=== PATIENT | female | born 1945 | race Two or more races ===

== ENCOUNTER 2024-10-31 10:37 | Emergency (ER) | payer MEDICAID, MEDICARE ==
[~2024-10-31] VITALS: Ht 172.7 cm; Wt 121.1 kg
--- NOTE | 2024-10-31 10:59 | ED.PDOC ---
History of Present Illness HPI Comments 79-year-old female presents with a chief complaint of cellulitis x 3 weeks to her bilateral lower extremities. Patient states that her legs are swollen and red for the past 3 weeks. Patient was given Lasix by Dr. Lugo, but states that she broke out from it. Patient is not currently on any antibiotics. Time Seen by MD: 10:47 Reviewed Notes: Medications, Allergies Allergies: Coded Allergies: Acetaminophen (Verified Allergy, Unknown, 10/31/24) Hydrocodone (Verified Allergy, Unknown, 10/31/24) Home Meds Active Scripts Clindamycin Hcl (Clindamycin Hcl) 300 Mg Cap, 1 CAP PO TID, #21 CAP Prov:JULIA TREJO MD 10/31/24 Amoxicillin Trihydrate (Amoxicillin) 500 Mg Tab, 1 TAB PO TID for 7 Days, #21 TAB Prov:JULIA TREJO MD 10/31/24 Information Source: Patient Mode of Arrival: Wheelchair Severity: Moderate Timing: Weeks Duration: Since onset Prehospital treatment: None Constitutional: denies: chills, diaphoresis, fatigue, fever, malaise, sweats, weakness, others EENTM: denies: blurred vision, double vision, ear bleeding, ear discharge, ear drainage, ear pain, ear ringing, eye pain, eye redness, hearing loss, mouth pain, mouth swelling, nasal discharge, nose bleeding, nose congestion, nose pain, photophobia, tearing, throat pain, throat swelling, voice changes, others Respiratory: denies: cough, hemoptysis, orthopnea, SOB at rest, shortness of breath, SOB with excertion, stridor, wheezing, others Cardiovascular: reports: edema; denies: chest pain, dizzy spells, diaphoresis, Dyspnea on exertion, irregular heart beat, left arm pain, lightheadedness, palpitations, PND, syncope, others Gastrointestinal: denies: abdomen distended, abdominal pain, blood streaked bowels, constipated, diarrhea, dysphagia, difficulty swallowing, hematemesis, melena, nausea, poor appetite, poor fluid intake, rectal bleeding, rectal pain, vomiting, others Genitourinary: denies: abnormal vagina bleeding, burning, dyspareunia, dysuria, flank pain, frequency, hematuria, incontinence, pain, , vagina discharge, urgency, others Neurological: denies: dizziness, fainting, headache, left sided numbness, left sided weakness, numbness, paresthesia, pre-existing deficit, right sided numbness, right sided weakness, seizure, speech problems, tingling, tremors, weakness, others Musculoskeletal: denies: back pain, gout, joint pain, joint swelling, muscle pain, muscle stiffness, neck pain, others Integumetry: denies: bruises, change in color, change in hair/nails, dryness, laceration, lesions, lumps, rash, wounds, others Allergic/Immunocompromised: denies: Difficulty Healing, Frequent Infections, Hives, Itching, others Hematologic/Lymphatic: denies: anemia, blood clots, easy bleeding, easy bruising, swollen glands, others Endocrine: denies: excessive hunger, excessive sweating, excessive thirst, excessive urination, flushing, intolerance to cold, intolerance to heat, unexplained weight gain, unexplained weight loss, others Psychiatric: denies: anxiety, bipolar disorder, depression, hopeless, panic disorder, schizophrenia, sleepless, suicidal, others All Other Systems: Reviewed and Negative Physical Exam General Appearance: Moderate Distress, Normal HEENT: Normal ENT Inspection, Pharynx Normal, TMs Normal Neck: Full Range of Motion, Non-Tender, Normal, Normal Inspection Respiratory: Chest Non-Tender, Lungs Clear, No Accessory Muscle Use, No Respiratory Distress, Normal Breath Sounds Cardiovascular: No Edema, No JVD, No Murmur, No Gallop, Normal Peripheral Pulses, Regular Rate/Rhythm Breast Exam: Deferred Gastrointestinal: No Organomegaly, Non Tender, No Pulsatile Mass, Normal Bowel Sounds, Soft Genitalia: Deferred Pelvic: Deferred Rectal: Deferred Extremities: No calf tenderness, Normal capillary refill, Normal inspection, Normal range of motion, Non-tender, No pedal edema Musculoskeletal : Apperance: Normal Neurologic: Alert, extracorporeal circulation specialist II-XII nml as Tested, No Motor Deficits, Normal Affect, Normal Mood, No Sensory Deficits Cerebellar Function: NOT DONE Reflexes: NOT DONE Skin: Dry, Normal Color, Warm, Other (Redness of bilateral lower extremity) Peripheral Pulses: 3+ Radial (R), 3+ Radial (L) Lymphatic: No Adenopathy Was a procedure done? Was a procedure done?: No Differential Dx Considerations may include: CHF Electrolyte imbalance X-Ray, Labs, Meds, VS Vital Signs Date Time Temp Pulse Resp B/P (MAP) Pulse Ox O2 Delivery O2 Flow Rate FiO2 10/31/24 15:35 107 10/31/24 15:22 98.1 72 16 146/77 (100) 98 98.1 10/31/24 14:54 71 19 96 Room Air* 0 21 10/31/24 13:46 97.4 77 14 141/87 (105) 94 97.4 10/31/24 12:04 97.7 88 16 127/77 (94) 94 97.7 10/31/24 10:51 98.1 83 17 135/90 (105) 93 98.1 Lab Test 10/31/24 15:49 10/31/24 11:14 Range/Units Sodium Level 137 136-145 mmol/L Potassium Level 3.7 3.5-5.1 mmol/L Chloride Level 99 98-107 mmol/L Carbon Dioxide Level 29 20-31 mmol/L Anion Gap 9 5-15 Blood Urea Nitrogen 13 9-23 mg/dL Creatinine 0.79 0.550-1.02 mg/dL Glomerular Filtration Rate Calc 77 >90 mL/min BUN/Creatinine Ratio 16.5 10.0-20.0 Serum Glucose 123 H 74-106 mg/dL Calcium Level 10.1 8.7-10.4 mg/dL Troponin I High Sensitivity 7 </=34 ng/L B-Type Natriuretic Peptide 23.99 0-100 pg/mL Current Medications Medications (Trade) Dose Ordered Sig/Gabriele Route Start Time Stop Time Status Last Admin Ceftriaxone Sodium 50 ml @ 100 mls/hr ONCE ONCE IV 10/31/24 13:15 10/31/24 13:44 DC 10/31/24 14:53 Clindamycin Phosphate 50 ml @ 50 mls/hr ONCE ONCE IV 10/31/24 13:15 10/31/24 14:14 DC 10/31/24 14:53 Patient alert. Obese. Vitals stable. Answering questions. Bilateral lower extremity redness. Possibly chronic. Cellulitis. BNP within normal limits. She is on water pill. Being followed by cardiology. Was given Rocephin. Was given clindamycin. No shortness a breath. No chest pain. Heart rate within normal limits. Saturation pristine on room air. Explained to the patient. Continue to monitor. States that she is feeling much better. Was given prescription of amoxicillin clindamycin antibiotic. Time of 1ST Reevaluation: 11:17 Reevaluation 1ST: Unchanged Patient Education/Counseling: Diagnosis, Treatment, Prognosis Family Education/Counseling: No Family Present SEPSIS Sepsis Screen Physician Orders Chest Portable (10/31/24 10:56) Electrocardigram (10/31/24 16:56) Vital Signs Date Time Temp Pulse Resp B/P (MAP) Pulse Ox O2 Delivery O2 Flow Rate FiO2 10/31/24 15:35 107 10/31/24 15:22 98.1 72 16 146/77 (100) 98 98.1 10/31/24 14:54 71 19 96 Room Air* 0 21 10/31/24 13:46 97.4 77 14 141/87 (105) 94 97.4 10/31/24 12:04 97.7 88 16 127/77 (94) 94 97.7 10/31/24 10:51 98.1 83 17 135/90 (105) 93 98.1 Medications Medications Dose Ordered Sig/Gabriele Route Start Time Stop Time Status Last Admin Dose Admin Ceftriaxone Sodium 50 ml @ 100 mls/hr ONCE ONCE IV 10/31/24 13:15 10/31/24 13:44 DC 10/31/24 14:53 Clindamycin Phosphate 50 ml @ 50 mls/hr ONCE ONCE IV 10/31/24 13:15 10/31/24 14:14 DC 10/31/24 14:53 Departure 1 Departure Time of Disposition: 13:13 Impression: Primary Impression: Cellulitis Qualified Codes: L03.116 - Cellulitis of left lower limb Disposition: 01 HOME / SELF CARE / HOMELESS Condition: Good e-Prescriptions Clindamycin Hcl (Clindamycin Hcl) 300 Mg Cap 1 CAP PO TID, #21 CAP Prov: JULIA TREJO MD 10/31/24 Amoxicillin Trihydrate (Amoxicillin) 500 Mg Tab 1 TAB PO TID for 7 Days, #21 TAB Prov: JULIA TREJO MD 10/31/24 Discharged With: Self Critical Care Note Critical Care Time?: No Stability Stability form required: No Heart Score Heart Score: Heart Score Response (Comments) Value History N/A 0 EKG N/A 0 Age N/A 0 Risk Factors N/A 0 Troponin N/A 0 Total 0 I personally scribed for JULIA TREJO MD ([email or web address]) on 10/31/24 at 10:59. Electronically submitted by Da Watts ([email or web address]). JULIA TREJO MD Oct 31, 2024 10:59
--- NOTE | 2024-10-31 12:02 | DVH ---
XY CHEST PORTABLE, HISTORY: sob COMPARISON: None None TECHNICAL DATA: 1 view of the chest was obtained. FINDINGS: Lines and tubes: None Cardiomediastinal silhouette: normal Pulmonary vasculature: normal Lung expansion: normal Lung airspace: normal Lung interstitium: normal Pleura: normal Pneumothorax: no Bones: Unremarkable Other: no IMPRESSION: No acute intrathoracic abnormality.
[2024-10-31] MEDS ORDERED: CLIN1CAP70 PO (13:54)
[2024-10-31] MEDS ORDERED: AMOX500T3 PO (13:54)
[2024-10-31] MEDS: CLINDAMYCIN 600MG IV 50 ML IV ONE (14:53)
[2024-10-31] MEDS: cefTRIAXone 1GM/50ML D5W 50 ML IV ONE (14:53)
[2024-10-31 14:54] VITALS: PULSE 71; RESP 19; O2SAT 96
[2024-10-31 15:22] VITALS: BP 146/77; RESP 16; TEMP 98.1; O2SAT 98
[2024-10-31 15:35] VITALS: PULSE 107
[2024-10-31 16:03] LABS: Chloride 99 mmol/L (98-107); Potassium 3.7 mmol/L (3.5-5.1); Sodium 137 mmol/L (136-145)
[2024-10-31 16:04] LABS: Anion Gap 9 (5-15); Carbon Dioxide 29 mmol/L (20-31)
[2024-10-31 16:05] LABS: Calcium 10.1 mg/dL (8.7-10.4)
[2024-10-31 16:10] LABS: BUN/Creatinine Ratio 16.5 (10.0-20.0); Blood Urea Nitrogen 13 mg/dL (9-23)
[2024-10-31 16:14] LABS: Glucose 123 mg/dL (74-106)
--- NOTE | 2024-10-31 18:27 | ECG ---
[facility] Test Date: 2024-10-31 Test Time: 15:35:42 Pat Name: YVON WEISS Department: ED Room: Gender: F Rehab Nurse: MISSY : [id number] Requested By: JULIA TREJO Order Number: [id number] Reading MD: Reggie Lugo Measurements Intervals [place] Rate: 107 P: 260 UT: 115 QRS: 8 QRSD: 113 T: -12 QT: 348 QTc: 465 Interpretive Statements Ectopic atrial tachycardia, unifocal Ventricular premature complex Borderline intraventricular conduction delay Borderline T abnormalities, inferior leads Electronically Signed On 10-31-2024 20:16:41 PDT by Reggie Lugo Please click the below link to view image of tracing.
== END 2024-10-31 16:20 | disposition home or self-care (01) ==
LOC: ER 10:37
DX: L03.116 Cellulitis of left lower limb (principal); L03.115 Cellulitis of right lower limb; Z88.5 Allergy status to narcotic agent; Z79.899 Other long term (current) drug therapy
CPT/HCPCS: 36415; 71045; 80048; 83880; 84484; 93005; 96365; 96368; 99285; J0696; J3490

== ENCOUNTER → 2024-11-11 | Outpatient (CLI) | payer MEDICAID, MEDICARE ==
[~2024-11-11] MED LIST: AMOX500T3 PO; CLIN1CAP70 PO
[2024-11-11 09:35] LABS: Hematocrit 43.0 % (36.0-46.0); Hemoglobin 14.8 g/dL (12.2-16.2); Mean Corpuscular Hemoglobin 28.7 pg (28.0-32.0); Mean Corpuscular Volume 83.0 fL (80.0-100.0); Nucleated Red Blood Cells % 0.0 %
[2024-11-11 10:06] LABS: Alanine Aminotransferase 18 U/L (7-40); Albumin 4.6 g/dL (3.2-4.8); Alkaline Phosphatase 112 U/L (46-116); Anion Gap 11 (5-15); BUN/Creatinine Ratio 21.5 (10.0-20.0); Blood Urea Nitrogen 17 mg/dL (9-23); Calcium 10.3 mg/dL (8.7-10.4); Cholesterol 153 mg/dL (< 200); Total Protein 7.7 g/dL (5.7-8.2); Triglycerides 104 mg/dL (< 150)
[2024-11-11 10:07] LABS: Bilirubin, Total 0.7 mg/dL (0.2-1.0); HDL Cholesterol 50 mg/dL (40-59)
[2024-11-11 10:08] LABS: Carbon Dioxide 33 mmol/L (20-31); Chloride 92 mmol/L (98-107); Glucose 145 mg/dL (74-106); Potassium 2.8 mmol/L (3.5-5.1); Sodium 136 mmol/L (136-145)
== END | disposition home or self-care (01) ==
LOC: LAB 09:08
PROVIDERS: ATTEND Nurse Practitioner Family
DX: I10 Essential (primary) hypertension (principal); R73.9 Hyperglycemia, unspecified; R60.0 Localized edema; Z00.01 Encounter for general adult medical examination with abnormal findings
CPT/HCPCS: 36415; 80053; 80061; 82043; 83036; 83880; 84443; 85025

== ENCOUNTER 2024-11-28 10:16 | Emergency (ER) | payer MEDICAID, OTHER ==
[~2024-11-28] VITALS: Ht 172.7 cm; Wt 115.0 kg
--- NOTE | 2024-11-28 10:59 | ED.PDOC ---
Musculoskeletal HPI Comments This is a 79 year old female presenting to the ED with chief complaint of bilateral leg swelling. Patient reports that she has been experiencing worsening swelling to her bilateral legs with associated redness, itchiness, and pain for the past few days. Patient relays that she has been prescribed antibiotics for treatment from her PCP, however, no relief has been noted. Patient states her left leg is worse than her right. Patient's next PCP appointment is at the end of December. Patient denies any chest pain, SOB, dizziness, numbness, weakness, tingling, or headache. Chief Complaint: Extremity Swelling Time Seen by MD: 10:54 Reviewed Notes: Nurses Notes, Medications, Allergies Allergies: Coded Allergies: Acetaminophen (Verified Allergy, Unknown, 10/31/24) Furosemide (Verified Allergy, Unknown, 11/28/24) Hydrocodone (Verified Allergy, Unknown, 10/31/24) Home Meds Active Scripts Clindamycin Hcl (Clindamycin Hcl) 300 Mg Cap, 1 CAP PO TID, #21 CAP Prov:JULIA TREJO MD 10/31/24 Amoxicillin Trihydrate (Amoxicillin) 500 Mg Tab, 1 TAB PO TID for 7 Days, #21 TAB Prov:JULIA TREJO MD 10/31/24 Information Source: Patient Mode of Arrival: Wheelchair Location: Bilateral Extremity Location: Leg Timing: Days Prehospital treatment: None Severity: Moderate Able to Move Extremity: No Bear Weight: Limited Pain: Moderate Mechanism: Spontaneous Circumstances: Spontaneous Onset of Symptoms: Spontaneous Symptoms: Swelling, Pain, Erythema DVT Risk Factors: CHF Last Tetanus: Unknown Past Medical History PAST MEDICAL HISTORY: CHF, CKF, DM Surgical History: Denies all surgeries [employer] History: Denies all [employer] Hx Family History Family History: Reviewed,noncontributory to illness Social History Smoker: Non-Smoker Alcohol: Denies ETOH Use Drugs: Denies Drug Use Lives In: Home Constitutional: denies: chills, diaphoresis, fatigue, fever, malaise, sweats, weakness, others EENTM: denies: blurred vision, double vision, ear bleeding, ear discharge, ear drainage, ear pain, ear ringing, eye pain, eye redness, hearing loss, mouth pain, mouth swelling, nasal discharge, nose bleeding, nose congestion, nose pain, photophobia, tearing, throat pain, throat swelling, voice changes, others Respiratory: denies: cough, hemoptysis, orthopnea, SOB at rest, shortness of breath, SOB with excertion, stridor, wheezing, others Cardiovascular: denies: chest pain, dizzy spells, diaphoresis, Dyspnea on exertion, edema, irregular heart beat, left arm pain, lightheadedness, palpitations, PND, syncope, others Gastrointestinal: denies: abdomen distended, abdominal pain, blood streaked bowels, constipated, diarrhea, dysphagia, difficulty swallowing, hematemesis, melena, nausea, poor appetite, poor fluid intake, rectal bleeding, rectal pain, vomiting, others Genitourinary: denies: abnormal vagina bleeding, burning, dyspareunia, dysuria, flank pain, frequency, hematuria, incontinence, pain, , vagina discharge, urgency, others Neurological: denies: dizziness, fainting, headache, left sided numbness, left sided weakness, numbness, paresthesia, pre-existing deficit, right sided numbness, right sided weakness, seizure, speech problems, tingling, tremors, weakness, others Musculoskeletal: reports: others (Bilateral leg swelling, redness, pain, and itchiness); denies: back pain, gout, joint pain, joint swelling, muscle pain, muscle stiffness, neck pain Integumetry: denies: bruises, change in color, change in hair/nails, dryness, laceration, lesions, lumps, rash, wounds, others Allergic/Immunocompromised: denies: Difficulty Healing, Frequent Infections, Hives, Itching, others Hematologic/Lymphatic: denies: anemia, blood clots, easy bleeding, easy bruising, swollen glands, others Endocrine: denies: excessive hunger, excessive sweating, excessive thirst, excessive urination, flushing, intolerance to cold, intolerance to heat, unexplained weight gain, unexplained weight loss, others Psychiatric: denies: anxiety, bipolar disorder, depression, hopeless, panic disorder, schizophrenia, sleepless, suicidal, others All Other Systems: Reviewed and Negative Physical Exam General Appearance: Moderate Distress, Normal HEENT: Normal ENT Inspection, Pharynx Normal, TMs Normal Neck: Full Range of Motion, Non-Tender, Normal, Normal Inspection Respiratory: Chest Non-Tender, Lungs Clear, No Accessory Muscle Use, No Respiratory Distress, Normal Breath Sounds Cardiovascular: No Edema, No JVD, No Murmur, No Gallop, Normal Peripheral Pulses, Regular Rate/Rhythm Breast Exam: Deferred Gastrointestinal: No Organomegaly, Non Tender, No Pulsatile Mass, Normal Bowel Sounds, Soft Genitalia: Deferred Pelvic: Deferred Rectal: Deferred Extremities: Swelling (Left lower extremity) Musculoskeletal : Apperance: Normal Neurologic: Alert, student life dean II-XII nml as Tested, No Motor Deficits, Normal Affect, Normal Mood, No Sensory Deficits Cerebellar Function: Normal Reflexes: Normal Skin: Dry, Normal Color, Warm Peripheral Pulses: 3+ Radial (R), 3+ Radial (L) Lymphatic: No Adenopathy Was a procedure done? Was a procedure done?: No Differential Diagnosis EXT Differential Diagnosis: Cellulitis, CHF, Deep Vein Thrombosis X-Ray, Labs, Meds, VS Vital Signs Date Time Temp Pulse Resp B/P (MAP) Pulse Ox O2 Delivery O2 Flow Rate FiO2 11/28/24 10:31 98.0 116 18 156/87 (110) 95 98.0 Lab Test 11/28/24 11:44 Range/Units Urine Color Yellow Yellow Urine Clarity Clear Clear Urine pH 7.0 5.0-9.0 Urine Specific [place] 1.007 1.001-1.035 Urine Protein Negative Negative Urine Ketones Negative Negative Urine Blood Negative Negative /uL Urine Nitrite Negative Negative Urine Bilirubin Negative Negative Urine Urobilinogen Normal Negative mg/dL Urine Leukocyte Esterase Negative Negative /uL Urine RBC <1 0 - 4 /hpf Urine Microscopic WBC < 1 0-5 /HPF Urine Squamous Epithelial Cells Few <5 /hpf Urine Bacteria None seen None Seen /hpf Urine Glucose 4+ H Normal mg/dL Patient alert. Has leg swelling. Left greater than the right. Vitals stable. History of cellulitis. Urinalysis within normal limits. DVT study within normal limits. She is currently taking antibiotics for her cellulitis. Complaining of dryness itching in the pelvic area. Was given prescription of fluconazole cream. Explained to the patient. Was told to follow up with her primary care physician. Was told to come back if there is any problem. Time of 1ST Reevaluation: 11:54 Reevaluation 1ST: Unchanged Patient Education/Counseling: Diagnosis, Treatment Family Education/Counseling: No Family Present Departure 1 Departure Time of Disposition: 13:09 Impression: Primary Impression: Cellulitis Qualified Codes: L03.116 - Cellulitis of left lower limb Disposition: 01 HOME / SELF CARE / HOMELESS Condition: Good e-Prescriptions Clotrimazole (Topical) (EQ ANTIFUNGAL) 1 % Cre 1 % EX BS for 10 Days, #5 CRE Prov: JULIA TREJO MD 11/28/24 Discharged With: Self Critical Care Note Critical Care Time?: No Stability Stability form required: No Heart Score Heart Score: Heart Score Response (Comments) Value History N/A 0 EKG N/A 0 Age N/A 0 Risk Factors N/A 0 Troponin N/A 0 Total 0 I personally scribed for JULIA TREJO MD ([email or web address]) on 11/28/24 at 10:59. Electronically submitted by Rober Ariza ([email or web address]). JULIA TREJO MD Nov 28, 2024 10:59
--- NOTE | 2024-11-28 11:38 | DVH ---
US LT Lower DVT HISTORY: dvt COMPARISON: None TECHNIQUE: Duplex doppler evaluation of the deep venous system of the lower extremity from the common femoral veins, superficial femoral vein, great saphenous vein, deep femoral vein, popliteal vein, an d calf veins, including color doppler and spectral/pulsed waveform analysis, was performed. FINDINGS: Left: - Common femoral vein: Compressible - Deep femoral vein: Compressible - Femoral vein: Compressible - Popliteal vein: Compressible - Posterior tibial vein: Waveforms present - Other: Nothing IMPRESSION: No left lower extremity deep venous thrombosis.
[2024-11-28 13:03] LABS: Urine Protein, UAD Negative (Negative)
[2024-11-28] MEDS ORDERED: CLOT-6 EX (13:11)
[2024-11-28 13:54] VITALS: BP 123/77; PULSE 87; RESP 18; TEMP 98.2; O2SAT 95
== END 2024-11-28 13:55 | disposition home or self-care (01) ==
LOC: ER 10:31
DX: L03.116 Cellulitis of left lower limb (principal); E11.9 Type 2 diabetes mellitus without complications; I50.9 Heart failure, unspecified; Z88.5 Allergy status to narcotic agent; Z88.8 Allergy status to other drugs, medicaments and biological substances
CPT/HCPCS: 81001; 93971